=== PATIENT | female | born 1965 | race Caucasian/White ===

== ENCOUNTER → 2017-03-17 | Day surgery (SDC) | payer OTHER ==
--- NOTE | 2017-03-15 13:35 | History & Physical Pre-Op ---
General Information and HPI History of Present Illness: Corie is a 51-year-old female with a long-standing and worsening complaint of hammertoes involving the second through fifth digits left and right feet. The patient has undergone an extended course of conservative care, including shoe gear and activity modification, rest, immobilization and courses of NSAIDs. None of this is yielded her any significant relief. The patient presents today for preoperative surgical consultation. Allergies/Medications Allergies: Coded Allergies: iodine (Mild, ANAPHYLAXIS 02/04/16) morphine (Mild, HIVES 12/19/15) Iodinated Contrast- Oral and IV Dye (IODINATED CONTRAST MEDIA - IV DYE) ( ANAPHYLAXIS 02/04/16) Penicillins (RASH 02/04/16) PCN PER ANTIBIOTIC ORDER SHEET OF 02/04/16 ([facility]) Sulfa (Sulfonamide Antibiotics) (UNKNOWN PER PT SISTER 12/19/15) hydrocodone (ANAPHYLAXIS 02/04/16) ibuprofen (From Vicoprofen) (ABD PAIN, GI UPSET, DIARRHEA, HIVES 02/04/16) PER ANTIBIOTIC ORDER SHEET OF 02/04/16 ([facility]) naproxen (GI UPSET - ABD CRAMPS, DIARRHEA, HIVES 02/04/16) nut - unspecified (ANAPHYLAXIS 12/19/15) oxaprozin (UNKNOWN PER PT CAN'T REMEMBER 12/19/15) peanut (ANAPHYLAXIS 12/19/15) shellfish derived (ANAPHYLAXIS 12/19/15) sumatriptan (ANAPHYLAXIS 12/19/15) amoxicillin (From AUGMENTIN) (DIARRHEA 02/05/16) caffeine (From CAFERGOT) (NAUSEA 02/05/16) celecoxib (GI UPSET, DIARRHEA 02/05/16) clavulanic acid (From AUGMENTIN) (DIARRHEA 02/05/16) ergotamine (From CAFERGOT) (NAUSEA 02/05/16) lactose (INTOLERANCE 02/05/16) Uncoded Allergies: ADVIL COATING (FACIAL REDNESS 02/04/16) Home Med list Ibuprofen (Motrin Ib) 200 MG TABLET 800 MG PO D PRN PAIN (Reported) Methocarbamol (Robaxin) 500 MG TABLET 1 TAB PO QHS SLEEP (Reported) Pantoprazole Sodium 40 MG TABLET.DR 1 TAB PO DAILY PRN REFKUX (Reported) Prochlorperazine Maleate (Compazine) 5 MG TABLET 1 TAB PO BID PRN MIGRAINES ( Reported) SERTRALINE HCL (Sertraline Hydrochloride) 100 MG TAB 1 TAB PO DAILY MENTAL HEALTH (Reported) Sertraline HCl (Zoloft) 100 MG TABLET 125 MG PO D DEPRESSION (Reported) Tizanidine HCl (Zanaflex) 2 MG CAPSULE 1 CAP PO BID PRN MIGRAINES (Reported) Past History Medical History Neurological: migraine, MOTION SICKNESS EENT: tonsil infections Cardiovascular: NONE Respiratory: obstructive sleep apnea Gastrointestinal: GERD, OBESITY Hepatic: NONE Renal: NONE Musculoskeletal: NONE Psychiatric: depression Endocrine: NONE Blood Disorders: NONE Cancer(s): 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 Heart sounds rate and rhythm regular. Lower extremity physical exam demonstrates intact pedal pulses bilaterally. Both dorsalis pedis and posterior tibial arteries are palpable bilaterally. Patient without any sensory or motor deficits. Deep tendon reflexes grossly intact. Patient noted to have semi-reducible hammertoe deformities noted at the second through fifth digits bilaterally. Assessment/Plan Assessment/Plan: Painful hammertoes bilaterally. A lengthy discussion reviewing both surgical and conservative options was held the patient at bedside and the patient elects to go forward with surgery despite the risks. As Ranked By This Provider Problem List: 1. Acquired bilateral hammer toes Attending MD Review Statement Attending Statement Attending MD Statement: examined this patient
[~2017-03-17] VITALS: Ht 172.7 cm; Wt 115.7 kg
[~2017-03-17] MED LIST: ACETAMINOPHEN500 M4 PO; COMPAZINE5 M1 PO; DILAUDID2 M1 PO; IBU800 MG PO; LOVENOX40 MG/0.1 SC; MOTRIN IB200 M1 PO; PANTOPRAZOLE SO40 M1 PO; PROTONIX 40MG T40 MG PO; PROTONIX40 M3 PO; ROBAXIN500 M1 PO; SERTRALINE HYD100 MG PO; TORADOL10 MG PO; TRAMADOL HCL50 M1 PO; TRAMADOL50 MG PO; ZANAFLEX2 M2 PO; ZOFRAN4 M1 SL; ZOLOFT100 M1 PO
--- NOTE | 2017-03-17 09:15 | Operative Report ---
Operative/Inv Procedure Report Surgery Date: 03/17/17 Name of Procedure: 1 arthroplasty second toe right foot 2 arthroplasty third toe right foot 3 arthroplasty fourth toe right foot 4 arthroplasty fifth toe right foot 5 arthroplasty second toe left foot 6 arthroplasty third toe left foot 7 arthroplasty fourth toe left foot 8 arthroplasty fifth toe left foot 9 intraoperative administration of ankle block anesthesia Pre-Operative Diagnosis: 1 hammertoe second toe right foot 2 hammertoe third toe right foot 3 hammertoe fourth toe right foot 4 hammertoe fifth toe right foot 5 hammertoe second toe left foot 6 hammertoe third toe left foot 7 hammertoe fourth toe left foot 8 hammertoe fifth toe left foot Post-Operative Diagnosis: The same Estimated Blood Loss: scant Surgeon/Senior Mobile Developer: VINICIO CEVALLOS,SAMREEN Richards DPM Anesthesia: moderate sedation, block Operative/Procedure Note Note: After obtaining informed consent the patient was brought to the operating room and placed on the operating table in supine position. The patient was then securely fastened to the operating table utilizing safety belt. After administration of IV sedation, 10 mL of 0.5% Marcaine plain was infiltrated about the patient's left and right ankles. 600 mg of clindamycin were delivered intravenously times one dose. 2 well-padded ankle tourniquets were placed about the patient's left and right lower extremities. The left and right feet were then scrubbed prepped and draped in usual aseptic manner. The left lower extremity was elevated to examine to limb, which point the ankle tourniquet was inflated 250 mmHg. Attention was directed to the dorsal aspects of the second third fourth and fifth digits at the level of the proximal interphalangeal joints. Converging semielliptical incisions centered over the joints were incised with a 15 blade. The ellipses of skin were freed and passed from the operative field. Transverse tenotomies were performed exposing the heads of the proximal phalanges. These were then removed a sagittal bone saw. The extensor tendons were then reapproximated with 4-0 Vicryl and the skin edges reapproximated 4-0 nylon. The incisions were then dressed with Xeroform 4 x 4's Kerlix and an Kelechi wrap. The tourniquet was then deflated. Next, the right lower extremity was elevated to examine to limb, at which point the ankle tourniquet was inflated 250 mmHg. Attention directed dorsal aspect of the right foot, where semielliptical incisions centered over the proximal interphalangeal joints of the second third fourth and fifth digits were incised with a 15 blade. The ellipses of skin were freed and passed from the operative field. Extensor tenotomies were performed exposing the heads of the proximal phalanges. These were then resected with sagittal bone saw. The extensor tendons were then reapproximated with 4-0 Vicryl. The skin edges were then reapproximated 4-0 nylon. The incisions were dressed with Xeroform 4 x 4's Kerlix and an Kelechi wrap. The patient was noted to tolerate both procedure and anesthesia well and the patient was transported from the operating room to recovery with vital signs stable and fascia status intact to all digits bilateral feet.
== END ==
LOC: STS 01:30
DX: M20.41 Other hammer toe(s) (acquired), right foot (principal); M19.90 Unspecified osteoarthritis, unspecified site; G43.909 Migraine, unspecified, not intractable, without status migrainosus; K21.9 Gastro-esophageal reflux disease without esophagitis
CPT/HCPCS: 88304; 88305; J1100; J2001; J2250